=== PATIENT | male | born 1960 | race Caucasian/White ===

== ENCOUNTER 2025-01-11 13:25 | Day surgery (SDC) | payer OTHER ==
[2025-01-11] VITALS (15 sets, daily range): BP systolic 97–137; BP diastolic 60–93
[~2025-01-11] VITALS: Ht 170.2 cm; Wt 69.9 kg
[~2025-01-11 13:25] MED LIST: AMOCLA875 PO; ASPI81CH PO; DULO60 PO; GABA300 PO; HYDACE5 PO; LOVA20 PO; Naprosyn500 MG PO; PRED20 PO
--- NOTE | 2025-01-11 14:43 | NUR ---
01/11/25 1443 Courtney Castellanos CONFIRMED AND REVIEWED H&P, MEDCICATIONS, ALLERGIES, MEDICAL HISTORY, RESPIRATORY HISTORY, VITAL SIGNS, 3-LEAD EKG, CONSENTS, AND PHYSICIAN ORDERS. PATIENT CONFIRMS NPO STATUS AND AGREES WITH SCHEDULED PROCEDURE. MONITOR INTACT WITH CONTINUOUS PULSE OXIMETRY, CAPNOGRAPHY, 3-LEAD EKG, INTERMITTENT BP. SUPPLEMENTAL O2 TO BE TITRATED THROUGHOUT PROCEDURE TO MAINTAIN O2 SATURATION ABOVE 90%. PATIENT DETERMINED TO BE ASA APPROPRIATE FOR PROPOFOL SEDATION PRIOR TO START OF PROCEDURE BY . MALLAMPATI CLASS 2 AIRWAY: COMPLETE VISUALIZATION OF THE UVULA.
--- NOTE | 2025-01-11 15:22 | NUR ---
Discharge instructions reviewed with patient. Patient verbalizes understanding. Copy given to patient to take home. Patient States Post-Procedure ride home has been arranged. Discharged via wheelchair to private car for ride home.
== END 2025-01-11 15:23 | disposition home or self-care (01) ==
LOC: ORSCMMR 13:25 → ORD 14:30 → ORSCMMR 14:30
PROVIDERS: Family Medicine
PROC: 0DJD8ZZ Inspection of Lower Intestinal Tract, Via Natural or Artificial Opening Endoscopic (ICD-10-PCS; principal; 2025-01-11 14:30)
DX: R63.4 Abnormal weight loss (principal); K57.30 Diverticulosis of large intestine without perforation or abscess without bleeding; K64.4 Residual hemorrhoidal skin tags; I10 Essential (primary) hypertension; E78.5 Hyperlipidemia, unspecified; I73.00 Raynaud's syndrome without gangrene; F17.210 Nicotine dependence, cigarettes, uncomplicated; J43.9 Emphysema, unspecified; Z79.899 Other long term (current) drug therapy; Z79.82 Long term (current) use of aspirin
CPT/HCPCS: J2704; J7120